=== PATIENT | female | born 1990 | race Caucasian/White ===

== ENCOUNTER → 2024-04-15 15:25 | Outpatient (REF) | payer OTHER, SELFPAY | LOC: RAD 15:25 | PROVIDERS: ATTENDING PHYSICIAN Physician Assistant; FAMILY PHYSICIAN Family Medicine | DX: R10.2 Pelvic and perineal pain (principal) | CPT/HCPCS: 76830; 76856 ==

== ENCOUNTER → 2025-01-18 06:40 | Outpatient (REF) | payer OTHER, SELFPAY ==
[2025-01-18 07:18] LABS: % Basophils 0.3 % (0-2); % Eosinophils 1.5 % (0-6); % Immature Granulocytes 0.3 % (0-0.5); % Lymphocytes 26.6 % (20.5-51.1); % Neutrophils 66.3 % (42.2-75.2); Absolute Eosinophils 0.1 10^3/uL (0-0.7); Absolute Lymphocytes 2.6 10^3/uL (1.2-3.4); Absolute Monocytes 0.5 10^3/uL (0.1-0.6); Absolute Neutrophils 6.4 10^3/uL (1.4-6.5); Hematocrit 34.8 % (37.0-47.0); Hemoglobin 12.2 g/dL (12.0-16.0); Mean Corp Hgb Conc. 35.1 g/dL (33.0-37.0); Mean Corpuscular Volume 88.5 fL (81.0-99.0); Mean Platelet Volume 10.4 fL (7.4-10.4); Nucleated Red Blood Cells % 0 %; Platelet Count 246 10^3/uL (130-400); Red Blood Cell Count 3.93 10^6/uL (4.20-5.40); Red Cell Dist. Width 13.3 % (11.5-14.5); White Blood Cell Count 9.7 10^3/uL (4.8-10.8)
[2025-01-18 07:55] LABS: ALT (SGPT) 11 U/L (0-35); AST (SGOT) 16 U/L (14-36); Albumin 3.5 g/dl (3.5-5.0); Alkaline Phosphatase 75 U/L (38-126); Blood Urea Nitrogen 6 mg/dl (7-17); Calcium 9.4 mg/dl (8.4-10.2); Carbon Dioxide 22 mmol/L (22-30); Chloride 109 mmol/L (98-107); Glucose 94 mg/dl (70-99); Potassium 3.9 mmol/L (3.5-5.1); Sodium 139 mmol/L (135-145); Total Bilirubin 0.3 mg/dl (0.2-1.3); Total Cholesterol 220 mg/dl (50-199); Total Protein 6.3 g/dl (6.3-8.2); Triglyceride 242 mg/dl (10-149); Very Low Density Lipoprotein 48 mg/dl (0-30); eGFR > 60.00
[2025-01-18 08:01] LABS: Glucose for Tolerance Test 94 mg/dl
[2025-01-18 08:09] LABS: HDL Cholesterol 105 mg/dl; LDL Cholesterol, Calculated 67 mg/dl
[2025-01-18 08:26] LABS: TSH Reflex To Free T4 2.82 uIU/ml (0.47-4.68)
[2025-01-18 09:01] LABS: Folate > 20.0 ng/ml (2.76-20); Vitamin B12 230 pg/ml (239-931)
[2025-01-18 09:13] LABS: Vitamin D, 25-OH*** 46.1 ng/mL (30-80)
[2025-01-18 09:48] LABS: Glucose for Tolerance Test 229 mg/dl
[2025-01-18 10:46] LABS: Glucose for Tolerance Test 205 mg/dl
[2025-01-18 12:14] LABS: Glucose for Tolerance Test 127 mg/dl
[2025-01-18 13:23] LABS: Syphilis/T. pallidum Ab Reflex Negative (Negative)
[2025-01-19 13:17] LABS: HIV Combo Negative (Negative)
== END ==
LOC: REG 06:40
PROVIDERS: ATTENDING PHYSICIAN Physician Assistant Medical; FAMILY PHYSICIAN Family Medicine; REFERRING PHYSICIAN Obstetrics & Gynecology
DX: Z00.00 Encounter for general adult medical examination without abnormal findings (principal); R79.89 Other specified abnormal findings of blood chemistry; E53.8 Deficiency of other specified B group vitamins; Z34.92 Encounter for supervision of normal pregnancy, unspecified, second trimester; O09.90 Supervision of high risk pregnancy, unspecified, unspecified trimester; E03.9 Hypothyroidism, unspecified
CPT/HCPCS: 36415; 80053; 80061; 82306; 82607; 82746; 82951; 84443; 85025; 86780; 87389